=== PATIENT | female | born 1945 | race Caucasian/White ===

== ENCOUNTER 2018-06-17 17:05 | Emergency (ER) | payer OTHER ==
[~2018-06-17] VITALS: Wt 72.7 kg
[2018-06-17] MEDS ORDERED: ONDANSETRON (ODT) 4 MG TAB ODT STA (18:29)
[2018-06-17] MEDS ORDERED: HYDROCODONE/APAP (5/325) TAB PO ONE (18:30)
[2018-06-17] MEDS ORDERED: NAPR-985 PO (20:17)
[2018-06-17] MEDS ORDERED: KETOROLAC 30 MG INJ IM STA (20:31)
[2018-06-17 20:41] VITALS: BP 162/77; PULSE 64; RESP 16
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
== END 2018-06-17 20:42 | disposition home or self-care (01) ==
LOC: FTE 17:05
DX: S13.4XXA Sprain of ligaments of cervical spine, initial encounter (principal); R51 Headache; V49.49XA Driver injured in collision with other motor vehicles in traffic accident, initial encounter
CPT/HCPCS: 70450; 72125; 96372; 99285; J1885